=== PATIENT | male | born 1930 | race Caucasian/White ===

== ENCOUNTER 2021-12-15 09:47 | Inpatient (IN) | payer OTHER ==
[~2021-12-15] VITALS: Ht 185.4 cm; Wt 63.7 kg
[2021-12-15 10:30] LABS: Basophils # (auto) 0 10 ^3/uL (0-0.2); Basophils % (auto) 0.9 % (0.0-2.0); Eosinophils # (auto) 0.3 10 ^3/uL (0-0.8); Eosinophils % (auto) 5.2 % (0.0-7.0); Hematocrit 38.6 % (41.0-53.0); Hemoglobin 13.1 g/dL (13.5-17.5); Lymphocytes # (auto) 1.9 10 ^3/uL (0.4-5.4); Lymphocytes % (auto) 35.3 % (10.0-50.0); Mean Corpuscular Hemoglobin 30.4 pg (28.0-32.0); Mean Corpuscular Hgb Conc. 33.9 g/dL (32.0-36.0); Mean Corpuscular Volume 89.6 fL (80.0-100.0); Monocytes # (auto) 0.4 10 ^3/uL (0-1.3); Monocytes % (auto) 7.3 % (0.0-12.0); Neutrophils # (auto) 2.7 10 ^3/uL (1.6-8.6); Neutrophils % (auto) 51.3 % (37.0-80.0); Nucleated Red Blood Cells % 0.1 %; Red Blood Cells 4.31 10^6/uL (4.5-5.90); Red Cell Distribution Width 13.8 % (11.8-14.3); White Blood Cell 5.3 10^3/uL (4.4-10.8)
[2021-12-15 10:51] LABS: Potassium 4.3 mmol/L (3.5-5.1)
[2021-12-15 10:59] LABS: Albumin 3.3 g/dL (3.4-5.0); BUN/Creatinine Ratio 35.5; Bilirubin, Total 1.3 mg/dL (0.2-1.0); Magnesium 2.5 mg/dL (1.6-2.6); Total Protein 6.6 g/dL (6.4-8.2)
[2021-12-15 12:28] LABS: Urine Bacteria NONE SEEN /hpf (None Seen); Urine Blood Negative /uL (Negative); Urine Specific Gravity 1.016 (1.001-1.035); Urine WBC 1 /hpf (0 - 3)
[2021-12-15] MEDS ORDERED: MORPHINE SULFATE INJ 2 MG/ml SYRG IV PRN ×2 (16:30→18:30)
[2021-12-15] MEDS ORDERED: NITROGLYCERIN 0.4 MG SL TAB SL PRN (16:30)
[2021-12-15] MEDS ORDERED: hydrALAZINE HCL 20 MG/ML VL IV PRN (18:30)
[2021-12-15] MEDS ORDERED: LORazepam 0.5 MG TAB PO PRN (18:30)
[2021-12-15] MEDS ORDERED: DOCUSATE SOD 100 MG CAP PO PRN (18:30)
[2021-12-15] MEDS ORDERED: ACETAMINOPHEN 325 MG TAB PO PRN (18:30)
[2021-12-15] MEDS ORDERED: LACTATED RINGER'S 1,000 ML IV ONE (18:30)
[2021-12-15] MEDS ORDERED: ONDANSETRON HCL 4 MG/2 ML VIAL IV PRN (18:30)
[2021-12-15] MEDS ORDERED: HYDROcodone-ACET 5/325MG TAB PO PRN (18:30)
[2021-12-15 20:06] LABS: Magnesium 2.1 mg/dL (1.6-2.6); Phosphorus 2.8 mg/dL (2.5-4.90)
[2021-12-15 20:13] LABS: INR 1.12 (0.9-1.15); Partial Thromboplastin Time 28.1 sec (23.6-33.0)
[2021-12-15 22:00] VITALS: BP_SYST 125; BP_SYST 135; BP_DIAS 51; BP_DIAS 57
[2021-12-15 22:38] VITALS: BP 126/71
[2021-12-15] MEDS: ATORVASTATIN 20 MG TAB PO SCH (22:42)
[2021-12-15] MEDS: SACUBITRIL-VALSARTAN 24mg/26mg TAB PO SCH (22:42)
[2021-12-16 04:58] VITALS: BP 126/80
[2021-12-16 05:49] LABS: Potassium 4.1 mmol/L (3.5-5.1)
[2021-12-16 05:53] LABS: Basophils # (auto) 0.1 10 ^3/uL (0-0.2); Eosinophils # (auto) 0.1 10 ^3/uL (0-0.8); Eosinophils % (auto) 1.7 % (0.0-7.0); Hematocrit 39.4 % (41.0-53.0); Hemoglobin 13.8 g/dL (13.5-17.5); Lymphocytes # (auto) 1.8 10 ^3/uL (0.4-5.4); Lymphocytes % (auto) 31.1 % (10.0-50.0); Mean Corpuscular Hemoglobin 31.3 pg (28.0-32.0); Mean Corpuscular Volume 89.6 fL (80.0-100.0); Monocytes # (auto) 0.4 10 ^3/uL (0-1.3); Monocytes % (auto) 7.5 % (0.0-12.0); Neutrophils # (auto) 3.3 10 ^3/uL (1.6-8.6); Neutrophils % (auto) 58.7 % (37.0-80.0); Nucleated Red Blood Cells % 0.1 %; Red Blood Cells 4.39 10^6/uL (4.5-5.90); Red Cell Distribution Width 13.5 % (11.8-14.3); White Blood Cell 5.7 10^3/uL (4.4-10.8)
[2021-12-16 05:55] LABS: INR 1.11 (0.9-1.15); Partial Thromboplastin Time 28.9 sec (23.6-33.0)
[2021-12-16 05:57] LABS: Albumin 3.8 g/dL (3.4-5.0); BUN/Creatinine Ratio 26.6; Bilirubin, Total 1.8 mg/dL (0.2-1.0); CRP High Sensitivity 0.24 mg/dL (< 0.3); Calcium 9.3 mg/dL (8.5-10.1); Magnesium 2.1 mg/dL (1.6-2.6); Phosphorus 2.5 mg/dL (2.5-4.90); Total Protein 7.3 g/dL (6.4-8.2); Uric Acid 5.3 mg/dL (3.5-7.2)
[2021-12-16 08:30] VITALS: BP 121/75
[2021-12-16] MEDS: SACUBITRIL-VALSARTAN 24mg/26mg TAB PO SCH ×2 (09:34→22:43)
[2021-12-16] MEDS: ASPirin 81 mg TAB PO SCH (09:34)
[2021-12-16] MEDS: CHOLECALCIFEROL (VITD3) 2,000 UNIT CAP/TAB PO SCH (09:35)
[2021-12-16] MEDS: CYANOCOBALAMIN 500 MCG TAB PO SCH (09:35)
[2021-12-16] MEDS: ENOXAPARIN SOD 40 MG/0.4 ML SYRINGE SC SCH (09:35)
[2021-12-16 13:00] VITALS: BP 134/81
[2021-12-16] MEDS ORDERED: HALOPERIDOL LACTATE 5 MG/ML INJ VIAL IM PRN (18:30)
[2021-12-16] MEDS: ATORVASTATIN 20 MG TAB PO SCH (22:43)
[2021-12-17] MEDS ORDERED: HALOPERIDOL LACTATE 5 MG/ML INJ VIAL IM PRN (01:00)
[2021-12-17 05:00] VITALS: BP 129/69
[2021-12-17] MEDS ORDERED: TAM04C PO (09:04)
[2021-12-17] MEDS: SACUBITRIL-VALSARTAN 24mg/26mg TAB PO SCH (10:00)
[2021-12-17] MEDS: ASPirin 81 mg TAB PO SCH (10:00)
[2021-12-17] MEDS: ENOXAPARIN SOD 40 MG/0.4 ML SYRINGE SC SCH (10:00)
[2021-12-17] MEDS: CHOLECALCIFEROL (VITD3) 2,000 UNIT CAP/TAB PO SCH (10:00)
[2021-12-17] MEDS: CYANOCOBALAMIN 500 MCG TAB PO SCH (10:00)
== END 2021-12-17 12:00 | disposition home health service (06) | DRG 552 ==
LOC: ER 09:47 → OVERFLOW 16:21 → CENTRAL 22:06
PROVIDERS: ADMIT Hospitalist; ATTEND Internal Medicine
DX: M54.16 Radiculopathy, lumbar region (principal); I42.0 Dilated cardiomyopathy; I50.42 Chronic combined systolic (congestive) and diastolic (congestive) heart failure; Z68.1 Body mass index [BMI] 19.9 or less, adult; R62.7 Adult failure to thrive; F17.200 Nicotine dependence, unspecified, uncomplicated; E03.9 Hypothyroidism, unspecified; M16.0 Bilateral primary osteoarthritis of hip; M35.3 Polymyalgia rheumatica; M47.814 Spondylosis without myelopathy or radiculopathy, thoracic region; M60.9 Myositis, unspecified; M89.9 Disorder of bone, unspecified; F03.90 Unspecified dementia, unspecified severity, without behavioral disturbance, psychotic disturbance, mood disturbance, and anxiety; W01.0XXA Fall on same level from slipping, tripping and stumbling without subsequent striking against object, initial encounter; M31.6 Other giant cell arteritis; C61 Malignant neoplasm of prostate; N40.0 Benign prostatic hyperplasia without lower urinary tract symptoms; Z98.42 Cataract extraction status, left eye; Z79.82 Long term (current) use of aspirin; Z90.49 Acquired absence of other specified parts of digestive tract; Z98.41 Cataract extraction status, right eye; Y93.89 Activity, other specified; Y92.89 Other specified places as the place of occurrence of the external cause; Y99.8 Other external cause status; Z95.810 Presence of automatic (implantable) cardiac defibrillator
CPT/HCPCS: 36415; 70450; 71045; 71250; 73502; 74176; 80053; 80061; 81001; 82550; 82728; 83036; 83615; 83690; 83735; 83880; 84100; 84154; 84439; 84443; 84484; 84550; 85025; 85379; 85610; 85652; 85730; 86038; 86141; 87040; 87086; 93005; 97163; G0378

== ENCOUNTER 2021-12-30 12:43 | Inpatient (IN) | payer OTHER ==
[~2021-12-30] VITALS: Ht 185.4 cm; Wt 63.5 kg
[~2021-12-30 12:43] MED LIST: TAM04C PO
[2021-12-30 14:19] LABS: Basophils # (auto) 0 10 ^3/uL (0-0.2); Basophils % (auto) 0.7 % (0.0-2.0); Eosinophils # (auto) 0.1 10 ^3/uL (0-0.8); Eosinophils % (auto) 1.7 % (0.0-7.0); Hematocrit 35.9 % (41.0-53.0); Hemoglobin 12.4 g/dL (13.5-17.5); Lymphocytes # (auto) 1.6 10 ^3/uL (0.4-5.4); Lymphocytes % (auto) 27.1 % (10.0-50.0); Mean Corpuscular Hemoglobin 31.1 pg (28.0-32.0); Mean Corpuscular Hgb Conc. 34.4 g/dL (32.0-36.0); Mean Corpuscular Volume 90.4 fL (80.0-100.0); Monocytes # (auto) 0.6 10 ^3/uL (0-1.3); Monocytes % (auto) 9.4 % (0.0-12.0); Neutrophils # (auto) 3.7 10 ^3/uL (1.6-8.6); Neutrophils % (auto) 61.1 % (37.0-80.0); Nucleated Red Blood Cells % 0.1 %; Red Blood Cells 3.98 10^6/uL (4.5-5.90); White Blood Cell 6.1 10^3/uL (4.4-10.8)
[2021-12-30 14:35] LABS: Albumin 3.4 g/dL (3.4-5.0); Calcium 9.2 mg/dL (8.5-10.1); Magnesium 2.5 mg/dL (1.6-2.6)
[2021-12-30 14:38] LABS: BUN/Creatinine Ratio 33.3; Bilirubin, Total 0.8 mg/dL (0.2-1.0); Total Protein 6.7 g/dL (6.4-8.2)
[2021-12-30] MEDS ORDERED: SODIUM CHLORIDE 0.9% 1,000 ML IV ONE (17:15)
[2021-12-30 17:29] LABS: Urine Bacteria NONE SEEN /hpf (None Seen); Urine Blood Negative /uL (Negative); Urine Hyaline Cast FEW /lpf (0 - 2); Urine Specific Gravity 1.014 (1.001-1.035); Urine WBC <1 /hpf (0 - 3)
[2021-12-30] MEDS ORDERED: ACETAMINOPHEN 325 MG TAB PO PRN (21:45)
[2021-12-30] MEDS ORDERED: DOCUSATE SOD 100 MG CAP PO PRN (21:45)
[2021-12-30] MEDS ORDERED: SODIUM CHLORIDE 0.9% 1,000 ML IV SCH (21:45)
[2021-12-30] MEDS ORDERED: ONDANSETRON HCL 4 MG/2 ML VIAL IV PRN (21:45)
[2021-12-30] MEDS ORDERED: HYDROcodone-ACET 5/325MG TAB PO PRN (21:45)
[2021-12-30] MEDS ORDERED: MORPHINE SULFATE INJ 2 MG/ml SYRG IV PRN (23:30)
[2021-12-30] MEDS ORDERED: NITROGLYCERIN 0.4 MG SL TAB SL PRN (23:30)
[2021-12-31 04:17] VITALS: BP 127/69
[2021-12-31 06:43] LABS: Basophils # (auto) 0 10 ^3/uL (0-0.2); Basophils % (auto) 0.6 % (0.0-2.0); Eosinophils # (auto) 0.1 10 ^3/uL (0-0.8); Eosinophils % (auto) 2.4 % (0.0-7.0); Hematocrit 34.3 % (41.0-53.0); Hemoglobin 11.7 g/dL (13.5-17.5); Lymphocytes # (auto) 1.8 10 ^3/uL (0.4-5.4); Lymphocytes % (auto) 30.5 % (10.0-50.0); Mean Corpuscular Hemoglobin 31.4 pg (28.0-32.0); Mean Corpuscular Hgb Conc. 34.2 g/dL (32.0-36.0); Mean Corpuscular Volume 91.8 fL (80.0-100.0); Monocytes # (auto) 0.5 10 ^3/uL (0-1.3); Monocytes % (auto) 8.5 % (0.0-12.0); Neutrophils # (auto) 3.4 10 ^3/uL (1.6-8.6); Nucleated Red Blood Cells % 0.1 %; Red Blood Cells 3.74 10^6/uL (4.5-5.90); White Blood Cell 5.9 10^3/uL (4.4-10.8)
[2021-12-31 06:51] LABS: Calcium 8.7 mg/dL (8.5-10.1); Potassium 4.3 mmol/L (3.5-5.1)
[2021-12-31 06:54] LABS: Bilirubin, Total 0.9 mg/dL (0.2-1.0); Total Protein 6.2 g/dL (6.4-8.2)
[2021-12-31] MEDS ORDERED: LEVOTHYROXINE SODIUM 50 MCG TAB PO SCH (07:00)
[2021-12-31] MEDS ORDERED: ASPirin 81 mg TAB PO SCH (10:00)
[2021-12-31] MEDS ORDERED: ENOXAPARIN SOD 40 MG/0.4 ML SYRINGE SC SCH (10:00)
== END 2021-12-31 08:35 | disposition left against medical advice (07) | DRG 312 ==
LOC: EDBD 12:43 → ER 12:43 → TELE 23:23
PROVIDERS: ADMIT Nurse Practitioner Family; ATTEND Nurse Practitioner Family
DX: I95.1 Orthostatic hypotension (principal); D64.9 Anemia, unspecified; E03.9 Hypothyroidism, unspecified; E86.9 Volume depletion, unspecified; F17.200 Nicotine dependence, unspecified, uncomplicated; I49.5 Sick sinus syndrome; Z53.29 Procedure and treatment not carried out because of patient's decision for other reasons; Z95.0 Presence of cardiac pacemaker; Z20.822 Contact with and (suspected) exposure to COVID-19; Z90.49 Acquired absence of other specified parts of digestive tract
CPT/HCPCS: 36415; 71045; 80053; 81001; 83735; 84443; 84484; 85025; 93005; 96360; 96361; G0378